=== PATIENT | male | born 1970 | race Caucasian/White ===

== ENCOUNTER 2021-02-25 13:38 | Outpatient (REF) | payer MEDICAID, SELFPAY ==
[2021-02-25 21:17] LABS: Abs Immature Grans 0.02 10^3/uL (0.0-0.06); Absolute Eosinophil Count 0.06 10^3/uL (0.0-0.7); Absolute Lymphocyte Count 1.17 10^3/uL (1.2-3.4); Absolute Monocyte Count 0.66 10^3/uL (0.1-0.8); Absolute Neutrophil Count 5.51 10^3/uL (1.2-6.7); Basophils % 1.3; Eosinophils % 0.8; HCT 44.9 % (40.0-50.0); Immature Grans % 0.3; Lymphocytes % 15.6; MCH 30.5 pg (27.0-33.0); MCHC 33.4 % (32.0-36.0); MCV 91.3 fL (80-95); MPV 10.3 fL (8.0-11.0); Monocytes % 8.8; Neutrophils % 73.2; Nucleated RBC 0 %; Platelet Count 189 10^3/uL (130-400); RBC 4.92 10^6/uL (4.36-5.78); RDW 13.2 % (11.8-14.1); RDW-SD 44.3 fL; WBC 7.52 10^3/uL (4.4-10.8)
[2021-02-25 21:34] LABS: ALT 60 U/L (16-63); AST 75 U/L (15-37); Albumin 4.6 g/dL (3.4-5.0); Alkaline Phosphatase 78 U/L (46-116); Anion Gap 12.9 mmol/L (3-11); BUN 6 mg/dL (7-18); Bilirubin, Total 0.5 mg/dL (0.2-1.0); CO2 26.1 mmol/L (21.0-32.0); CREATININE 0.8 mg/dL (0.70-1.30); Calcium 9.3 mg/dL (8.5-10.1); Chloride 96 mmol/L (98-107); Glucose 83 mg/dL (74-106); Potassium 4.1 mmol/L (3.5-5.1); Sodium 135 mmol/L (136-145); Total Protein 8.2 g/dL (6.4-8.2)
== END 2021-02-25 13:39 | disposition home or self-care (01) ==
LOC: NCHCN 13:38
PROVIDERS: Visit Provider Family Medicine
DX: K92.1 Melena (principal); R03.0 Elevated blood-pressure reading, without diagnosis of hypertension
CPT/HCPCS: 80053; 85025

== ENCOUNTER 2021-07-27 01:11 | Outpatient (CLI) | payer MEDICAID, SELFPAY ==
[2021-07-27 15:34] LABS: COVID-19 PCR Negative (Negative)
[2021-07-27 17:16] LABS: Source Nasal/Nares
== END 2021-07-27 01:12 | disposition home or self-care (01) ==
LOC: LBO 01:11
PROVIDERS: PCP Family Medicine; Visit Provider Surgery
DX: Z20.822 Contact with and (suspected) exposure to COVID-19 (principal); Z01.818 Encounter for other preprocedural examination
CPT/HCPCS: 87635

== ENCOUNTER 2021-07-29 10:18 | Day surgery (SDC) | payer MEDICAID, SELFPAY ==
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
--- NOTE | 2021-07-29 06:58 | W.COLOREPORT ---
Colonoscopy Report Date of procedure: 07/29/21 Pre-op diagnosis general: colon cancer screening Post-op diagnosis procedure note: other (polyps) Procedure: colonoscopy with polypectomy Surgeon: Kaykay Harris Anesthesia Type: General:No Airway Estimated blood loss (mL): 5 Pathology: other (cecal polyp, transverse polyp and sigmoid biopsies) Complications: None Disposition: same day Indications: The patient is here for Colonoscopy pre-op. He has no family history of colon cancer. He has not had any bowel habit changes. -Discussed colonoscopy bowel prep as well as the procedure. Discussed possible complications of the procedure to include bleeding, pain, perforation, missed small lesion/polyp, sore throat, aspiration and adverse reaction to the medications. Questions were answered to patient?s satisfaction. No guarantees were implied or given.? Unable to locate surgical history information regarding colectomy and colostomy given the age of the procedure. I spent ? 28? minutes in reviewing the record, seeing the patient, providing patient education, answering patient's questions and documenting in the medical record. P// Colonoscopy under sedation Prep: Miralax/Dulcolax Procedure Start Time: 11:58 Procedure End Time: 12:21 Retraction Time: 13 minutes Findings: 2 polyps ? a third Procedure Description: After informed consent was obtained the patient was taken to the procedure room and placed in a left decubitous position. Monitors were applied and a time out was done. The patients name, date of , procedure, allergies to medications and metal in their body was reviewed. The patient was then sedated. Once sedated and comfortable a rectal exam was done. External exam was normal. Internal exam revealed a normal sphincter tone and no palpable masses. The scope was then introduced and retro-flexed. No internal hemorrhoids, polyps or masses were identified on retro-flexion. The scope was then advanced to the cecum without difficulty. The ileocecal vlave and appendiceal orifice were identified. The prep was adequate. The scope was then slowly retracted over 13 minutes back into the rectum. Polyps were removed with cold forceps in the cecum and with a hot snare in the Transverse colon. In the sigmoid colon there was a question of a polyp, this was biopsied There was no diverticulosis noted. The scope was removed and the patient was woken up and taken back to Same day surgery in stable condition. The patient tolerated the procedure well and there were no immediate complications. Follow up: The patient should follow up in 3-5 years unless they develop changes in bowel habits or other new gastrointestinal complaints.
--- NOTE | 2021-07-29 06:59 | W.PM.DSUDISC ---
Discharge Plan Disposition Patient Disposition: HOME Condition: Good Discharge Details Reason For Visit: Colonoscopy Attending Provider: Kaykay Harris Primary Care Provider: Jovanni Tillman Home Meds and New Rx's Prescriptions: Continued atenolol 50 mg tablet 50 mg PO DAILY 0RF loratadine [Allergy Relief (loratadine)] 10 mg tablet 10 mg PO DAILY 0RF Discontinued bisacodyl [Dulcolax (bisacodyl)] 5 mg tablet,delayed release (DR/EC) 5 mg PO ONCE Qty: 4 0RF Rx Instructions: Take according to provider's instructions for colonoscopy prep. polyethylene glycol 3350 17 gram/dose powder 17 g PO ONCE Qty: 238 0RF Rx Instructions: To be taken as directed by prescriber's office for colonoscopy prep. Discharge Instructions Instructions: Colorectal Polyps (DC) Additional Instructions: Findings: a couple of polyps Follow up: will depend on final pathology results Please call if you develop: fevers >101.5 Nausea or Vomiting Abdominal pain that is not transient Rectal bleeding that is more then a tbsp A hard abdomen and inability to pass gas DAY SURGERY UNIT POST ENDOSCOPY INSTRUCTIONS Instructions for everyone who is given Anesthesia: For your safety, please do the following for the next 24 Hours: a. Do not drive or operate dangerous equipment b. Do not drink alcohol beverages or use any recreational drugs for the first 24 hours or while taking pain medications. The medications in your body may have a reaction that can be dangerous. c. Do not make any important decisions or sign any important papers 1. Generally there are no restrictions on your activity after a day or so has gone by, but you may feel a bit fatigued for a few days. 2. After you arrive home you may have a light meal and return to a normal diet as you can tolerate it without feeling sick to your stomach. 3. After surgery, you may feel pain or discomfort. This should be only transient, but if it persists please contact your doctor. 4. If there are any questions regarding the findings of your procedure, please feel free to contact your doctor. 6. If you are unable to contact your doctor with a problem, contact the hospital at [phone]. 7. Continue all your regular medications unless directed otherwise. I understand the above instructions and have no questions. Signature of Patient or Responsible Adult Escort Date/Time Name of Responsible Adult Escort Signature of Nurse Date/Time Activity:: Activity as Tolerated Diet:: As Tolerated Discharge Orders Discharge Orders: Discharge Order (Routine); Ordered 07/29/21 Ordered By: Kaykay Harris DS: Diagnosis Discharge Diagnosis (1) Encounter for colorectal cancer screening: Status: Acute
[2021-07-29 10:43] VITALS: BP 188/96; PULSE 82; RESP 16; TEMP 36.2; O2SAT 100
[2021-07-29] MEDS: Lactated Ringers 1,000 ML 80 ML IV (10:59)
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
[2021-07-29 11:41] VITALS: BMI 22.1
--- NOTE | 2021-07-29 12:04 | BOWEL_PTH ---
PATIENT: Nando Herr LOC: [facility] U#:[id number] AGE/SX: 50/M ROOM: RE07/29/[address]: Kaykay Harris MD : 1970 BED: DIS: 07/29/2021 SPEC #: [id number] RECD: 07/29/21 13:05 STATUS: KYLE RE #: [id number] SALIMA: 07/29/21 12:[address]: Kaykay Harris DEPT: Surgical Specimen RECD BY: Chery Nina ENTERED: 07/29/21 13:06 SP TYPE: Bowel OTHR DR: Jovanni Tillman Tissues: 1 - BIOPSY BOWEL 2 - BIOPSY BOWEL 3 - BIOPSY BOWEL Procedures: GROSS AND MICRO LEVEL 4 Comments: [id number]
[2021-07-29 12:30] VITALS: BP 148/98; PULSE 71; RESP 18; TEMP 36.1; O2SAT 99
--- NOTE | 2021-07-29 12:49 | W.ANESPOSTOP ---
Postoperative Evaluation Date, Time and Location Date Performed: 07/29/21 Time Performed: 12:49 Patient Location: Day Surgery Unit Vital Signs Most Recent Imported Vital Signs: Most Recent Vital Signs Temp Pulse Resp BP Pulse Ox 36.1 C L 71 18 148/98 H 99 07/29/21 12:30 07/29/21 12:30 07/29/21 12:30 07/29/21 12:30 07/29/21 12:30 Pain Score Most Recent Pain Score: Most Recent Pain Score Pain Level 0 07/29/21 12:30 Assessment Mental Status: Awake (Alert & Oriented to Patient Baseline) Airway and Respiratory Function: Patent airway with normal (patient baseline) respiratory exam Cardiovascular Function: Hemodynamically Stable Hydration Status: Adequately Hydrated Nausea & Vomiting: No Nausea or Vomiting Pain: Pt. Denies Any Pain Peripheral Nerve Block: Patient did not receive a nerve block Postoperative Comments:: Pt. was hypertensive throughout anesthetic despite a dose of IV lopressor. May want to follow up with PCP for hypertension.
[2021-07-29 13:05] VITALS: BP 185/91; PULSE 67; RESP 16; TEMP 36; O2SAT 100
== END 2021-07-29 13:20 | disposition home or self-care (01) ==
LOC: SUR 10:19
PROVIDERS: PCP Family Medicine; Visit Provider Surgery
PROC: 0DJD8ZZ Inspection of Lower Intestinal Tract, Via Natural or Artificial Opening Endoscopic (ICD-10-PCS; CPT 45378; principal; 2021-07-29 12:00)
DX: Z12.11 Encounter for screening for malignant neoplasm of colon (principal); D12.0 Benign neoplasm of cecum; Z98.0 Intestinal bypass and anastomosis status; D12.2 Benign neoplasm of ascending colon; K63.89 Other specified diseases of intestine
CPT/HCPCS: 45385; 45380; 88305; J2704

== ENCOUNTER 2021-10-21 08:35 | Outpatient (REF) | payer MEDICAID, SELFPAY ==
[2021-10-21 15:35] LABS: Calculated LDL 118 mg/dL (<100); Cholesterol 197 mg/dL (<200); HDL Cholesterol 53 mg/dL (40-60); Triglyceride 133 mg/dL (<150)
== END 2021-10-21 08:36 | disposition home or self-care (01) ==
LOC: NCHCN 08:35
PROVIDERS: PCP Family Medicine; Visit Provider Family Medicine
DX: I10 Essential (primary) hypertension (principal); Z13.220 Encounter for screening for lipoid disorders
CPT/HCPCS: 80061

== ENCOUNTER 2022-12-21 10:54 | Outpatient (REF) | payer MEDICAID, SELFPAY ==
[2022-12-21 14:36] LABS: HCT 40.2 % (40.0-50.0); HGB 14.1 g/dL (13.5-17.5); MCH 32.3 pg (27.0-33.0); MCHC 35.1 % (32.0-36.0); MCV 92 fL (80-95); MPV 10.2 fL (8.0-11.0); Platelet Count 219 10^3/uL (130-400); RBC 4.36 10^6/uL (4.36-5.78); RDW 12.3 % (11.8-14.1); RDW-SD 42.2 fL; WBC 5.55 10^3/uL (4.4-10.8)
[2022-12-21 14:51] LABS: BUN 5 mg/dL (7-18); Calcium 9.1 mg/dL (8.5-10.1); Chloride 95 mmol/L (98-107); Estimated GFR 91.69 (mL/min/1.73m2); Glucose 90 mg/dL (74-106); Potassium 4.5 mmol/L (3.5-5.1); Sodium 131 mmol/L (136-145)
== END 2022-12-21 10:55 | disposition home or self-care (01) ==
LOC: NCHCN 10:54
PROVIDERS: PCP Family Medicine; Visit Provider Family Medicine
DX: I10 Essential (primary) hypertension (principal)
CPT/HCPCS: 80048; 85027

== ENCOUNTER 2024-06-26 16:51 | Outpatient (REF) | payer MEDICAID, SELFPAY ==
[2024-06-26 14:38] LABS: Abs Immature Grans 0.07 10^3/uL (0.0-0.06); Absolute Basophil Count 0.09 10^3/uL (0.0-0.2); Absolute Lymphocyte Count 1.21 10^3/uL (1.2-3.4); Absolute Monocyte Count 0.64 10^3/uL (0.1-0.8); Absolute Neutrophil Count 4.82 10^3/uL (1.2-6.7); Basophils % 1.3 %; Eosinophils % 1.4 %; HCT 41.8 % (40.0-50.0); HGB 14.2 g/dL (13.5-17.5); Lymphocytes % 17.5 %; MCV 97 fL (80-95); MPV 9.5 fL (8.0-11.0); Monocytes % 9.2 %; Neutrophils % 69.6 %; Platelet Count 246 10^3/uL (130-400); RDW 12.7 % (11.8-14.1); RDW-SD 45.5 fL; WBC 6.93 10^3/uL (4.4-10.8)
[2024-06-26 14:44] LABS: ALT 28 U/L (16-63); AST 42 U/L (15-37); Albumin 4.6 g/dL (3.4-5.0); Alkaline Phosphatase 60 U/L (46-116); Anion Gap 10.9 mmol/L (3-11); BUN 9 mg/dL (7-18); Bilirubin, Total 0.81 mg/dL (0.2-1.0); CO2 26.1 mmol/L (21.0-32.0); CREATININE 0.8 mg/dL (0.70-1.30); Calcium 9.6 mg/dL (8.5-10.1); Chloride 94 mmol/L (98-107); Estimated GFR 107.15 (mL/min/1.73m2); Glucose 83 mg/dL (74-106); LDL CHOLESTEROL 81 mg/dL (<100); Potassium 4.9 mmol/L (3.5-5.1); Sodium 131 mmol/L (136-145)
== END 2024-06-26 16:52 | disposition home or self-care (01) ==
LOC: NCHCN 16:51
PROVIDERS: PCP Family Medicine; Visit Provider Family Medicine
DX: E78.5 Hyperlipidemia, unspecified (principal); I10 Essential (primary) hypertension
CPT/HCPCS: 80053; 83721; 85025

== ENCOUNTER 2024-07-23 02:03 | Outpatient (CLI) | payer MEDICAID, SELFPAY ==
--- NOTE | 2024-07-23 09:55 | DI.CTLCSR_ITS ---
Exam(s) CT CHEST LUNG CANCER SCREEN EXAM: CT CHEST LUNG CANCER SCREEN CLINICAL HISTORY: Nicotine dependence, F17.210; screening. TECHNIQUE: Imaging Protocol: Low Dose Technique CONTRAST MATERIAL: None COMPARISON: No exams were available for comparison FINDINGS: CHEST: LUNGS: There is biapical lung scarring, more prominent on the left side.. There are no confluent inf iltrates. No ominous pulmonary nodules. No pleural effusions. MEDIASTINUM: There is no obvious hilar nor mediastinal adenopathy. CARDIAC: Heart size is normal. There is no pericardial effusion.Caliber of the thoracic aorta is wit hin normal limits. OTHER: OSSEOUS: No significant osseous lesions.Fractures.. IMPRESSION: 1. Asymmetric biapical lung scarring, more prominent on the left side. Doubtful E significant. 2. No other significant pulmonary findings. 3. Lung RADS Cat 2 - Benign Appearance / Behavior: Nodules with a very low likelihood of becoming a c linically active cancer due to size or lack of growth Lung-RADS 1.0 CATEGORIES: Category 0 - Prior chest CT exam(s) being located for comparison. Category 1 - Annual screening in 12 months. No nodules or definitely benign nodules. Category 2 - Annual screening in 12 months. Benign appearance. Nodules with low likelihood of becomin g active cancer. Category 3 - 6-month follow-up. Probably benign. Short-term follow-up suggested. Nodules with low lik elihood of becoming active cancer. Category 4A - 3-month follow-up and CT/PET if >8 mm in size. Suspicious finding. Findings which requi re additional testing. Category 4B - Findings which require additional testing and tissue sampling. Category 4X - Category 3 or 4 nodules with additional features or imaging findings that increases the suspicion of malignancy. Modifier S- Potentially clinically significant findings (non lung cancer) RADIATION DOSE DELIVERED: 26.09mGy.cm Total DLP DATA REPOSITORY: All CT scans at this facility are submitted to the National Radiology Data Registry (NRDR) Dose Index Registry (DIR) with the [employer] (ACR). RADIATION OPTIMIZATION: All CT scans at this facility use at least one of these dose optimization te chniques: automated exposure control; mA and/or kV adjustment per patient size (includes targeted exa ms where dose is matched to clinical indication); or iterative reconstruction.
== END 2024-07-23 02:23 ==
LOC: DI 02:03
PROVIDERS: PCP Family Medicine; Visit Provider Family Medicine
DX: Z12.2 Encounter for screening for malignant neoplasm of respiratory organs (principal); F17.210 Nicotine dependence, cigarettes, uncomplicated; R91.8 Other nonspecific abnormal finding of lung field
CPT/HCPCS: 71271

== ENCOUNTER 2024-08-21 07:45 | Day surgery (SDC) | payer MEDICAID, SELFPAY ==
[2024-08-21 08:06] VITALS: BP 183/93; PULSE 81; RESP 16; TEMP 36.8; O2SAT 99
[2024-08-21] MEDS: Lactated Ringers 1,000 ML 80 ML IV (08:15)
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
[2024-08-21 09:51] VITALS: BMI 20.1
--- NOTE | 2024-08-21 10:09 | COLE_ITS ---
Date of service: 08/21/24 Time of Service: 10:09 Colonoscopy Report Procedure Description: PROCEDURES PERFORMED: 1. Colonoscopy with snare polypectomy PREOPERATIVE DIAGNOSIS: Surveillance colonoscopy, personal history of sessile serrated polyps POSTOPERATIVE DIAGNOSIS: Colon polyps, diverticulosis, grade 1 internal hemorrhoids SURGEON: Batsheva Mcguire MD INDICATION for procedure: The patient is a 53-year-old man who has a personal history of sessile serrated polyps on last colonoscopy. He has no symptoms of concern. FINDINGS: Terminal ileum was normal. In the distal sigmoid colon is a pedunculated 3-5 mm polyp that was removed with snare technique. No other po lyps anywhere. Diverticular disease in the sigmoid colon but no stricture or fibrosis or inflammation. Grade 1 internal hemorrhoids. SURVEILLANCE interval/FOLLOW-UP: 3-5 years. If this polyp was sessile serrated again then 3 years, otherwise 5 years. SPECIMENS: yes EBL: Minimal COMPLICATIONS: None QUALITY of prep: Excellent Procedure in detail: The patient gave written consent and was in agreement with the indications, the potential risks as well as the benefits of the procedure. They were taken to the endoscopy suite and laid in the left lateral decubitus position. A timeout was performed and anesthesia was administered which was tolerated well. I started the procedure. Digital rectal and visual examination was performed and grossly within normal limits. A well-lubricated flexible colonoscope was then introduced and passed without any notable difficulty all the way to the cecum identified by the ileocecal valve and the appendiceal orifice. The terminal ileum was deeply intubated and looked normal. The scope was then slowly withdrawn with the above-noted findings. The patient tolerated the procedure well and was taken to the PACU in hemodynamically stable condition.
--- NOTE | 2024-08-21 10:10 | W.PM.DSUDISC ---
Date of service: 08/21/24 Discharge Plan Disposition Patient Disposition: Home Condition: Good Discharge Details Attending Provider: Scot Mcguire Primary Care Provider: Jovanni Tillman Home Meds and New Rx's Prescriptions: No Action atenolol 50 mg tablet 50 mg PO DAILY bisacodyl 5 mg tablet,delayed release (DR/EC) 5 mg PO ONCE Qty: 4 0RF Rx Instructions: Per Colonoscopy bowel prep instructions polyethylene glycol 3350 17 gram/dose powder 238 g PO ONCE Qty: 238 0RF Rx Instructions: For Colonoscopy bowel prep, as directed by office aspirin 81 mg tablet,delayed release (DR/EC) 81 mg PO DAILY Discharge Instructions Additional Instructions: FINDINGS: A small polyp was found and removed today like last time. Nothing to worry about. We will follow-up with you after the pathology results which will decide whether you should have another colonoscopy in 3 years or in 5 years. Mild diverticular disease (diverticulosis) and mild hemorrhoid disease was seen today. These conditions are both very common, benign and nothing needs to be done about them. Stand Alone Forms: Anesthesia Discharge Inst., Colonoscopy Post Instructions, Valorie Abbott (DSU) Activity:: Activity as Tolerated Diet:: As Tolerated Discharge Orders Discharge Orders: Discharge Order (Routine); Ordered 08/21/24 Ordered By: Scot Mcguire
--- NOTE | 2024-08-21 10:25 | BOWEL_PTH ---
PATIENT: Nando Herr LOC: [facility] U#:[id number] AGE/SX: 53/M ROOM: RE08/21/[address]: Scot Mcguire : 1970 BED: DIS: 08/21/2024 SPEC #: [id number] RECD: 08/21/24 12:25 STATUS: KYLE COLMENARES #: [id number] SALIMA: 08/21/24 10:[address]: Scot Mcguire DEPT: Surgical Specimen RECD BY: Chery Nina ENTERED: 08/21/24 12:26 SP TYPE: Bowel OTHR DR: Jovanni Tillman Tissues: 1 - BIOPSY BOWEL Procedures: GROSS AND MICRO LEVEL 4 Comments: [id number]
[2024-08-21 10:39] VITALS: BP 156/91; PULSE 71; RESP 16; TEMP 36.4; O2SAT 99
[2024-08-21 11:00] VITALS: BP 194/84; PULSE 65; RESP 16; TEMP 36.8; O2SAT 84
--- NOTE | 2024-08-21 11:06 | W.ANESPOSTOP ---
Postoperative Evaluation Date, Time and Location Date Performed: 08/21/24 Time Performed: 11:06 Patient Location: Day Surgery Unit Vital Signs Most Recent Imported Vital Signs: Most Recent Vital Signs Temp Pulse Resp BP Pulse Ox 36.4 C L 71 16 156/91 H 99 08/21/24 10:39 08/21/24 10:39 08/21/24 10:39 08/21/24 10:39 08/21/24 10:39 Pain Score Most Recent Pain Score: Most Recent Pain Score Pain Level 0 08/21/24 10:39 Assessment Mental Status: Awake (Alert & Oriented to Patient Baseline) Airway and Respiratory Function: Patent airway with normal (patient baseline) respiratory exam Cardiovascular Function: Hemodynamically Stable Hydration Status: Adequately Hydrated Nausea & Vomiting: No Nausea or Vomiting Pain: Pt. Denies Any Pain Peripheral Nerve Block: Patient did not receive a nerve block
== END 2024-08-21 11:38 | disposition home or self-care (01) ==
PROVIDERS: PCP Family Medicine; Visit Provider Student in an Organized Health Care Education/Training Program
PROC: 0DJD8ZZ Inspection of Lower Intestinal Tract, Via Natural or Artificial Opening Endoscopic (ICD-10-PCS; CPT 45378; principal; 2024-08-21 09:00)
DX: Z12.11 Encounter for screening for malignant neoplasm of colon (principal); I10 Essential (primary) hypertension; F17.210 Nicotine dependence, cigarettes, uncomplicated; K63.5 Polyp of colon; K64.0 First degree hemorrhoids; K57.30 Diverticulosis of large intestine without perforation or abscess without bleeding; Z86.0101 Personal history of adenomatous and serrated colon polyps
CPT/HCPCS: 45385; 88305; J2003; J2704

== ENCOUNTER 2024-09-11 12:40 | Outpatient (REF) | payer MEDICAID, SELFPAY | END 2024-09-11 12:41 | disposition home or self-care (01) | LOC: NCHCN 12:40 | PROVIDERS: PCP Family Medicine; Visit Provider Family Medicine | DX: T14.8XXA Other injury of unspecified body region, initial encounter (principal) | CPT/HCPCS: 87077; 87070; 87205 ==

== ENCOUNTER 2025-01-11 06:13 | Day surgery (SDC) | payer MEDICAID, SELFPAY ==
[2025-01-11] MEDS: Tropicam./Phenyleph. (1/2.5%) 5 ML BTL OD ×3 (06:31→06:45)
[2025-01-11 06:32] VITALS: BP 182/98; PULSE 79; RESP 16; TEMP 36.5; O2SAT 100
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
[2025-01-11 07:08] VITALS: BMI 20.2
[2025-01-11] MEDS: Lidocaine 1% Pres-Free 5 ML VIAL (07:39)
[2025-01-11] MEDS: Moxifloxacin-PF 1 MG/ML VIAL (07:40)
[2025-01-11] MEDS: Duovisc Viscoelastic System EACH 1 EACH (07:40)
[2025-01-11] MEDS: Phenylephrine/Lidocaine (15/10) MG/ML 1 ML VIAL (07:43)
[2025-01-11] MEDS: Povidone-Iodine Ophth 30 ML BTL (07:44)
[2025-01-11] MEDS: Trypan Blue 0.06% 0.5 ML SYR (07:45)
[2025-01-11] MEDS: Balanced Salt Soln.-PLUS 500 ML BAG OP (07:45)
[2025-01-11] MEDS: Prednisolone 1%, Moxifloxacin 0.5%, Bromfenac 0.09% 5.6ML BTL OD (07:46)
[2025-01-11] MEDS: Tetracaine 0.5% 4 ML BTL OD (07:47)
[2025-01-11 08:05] VITALS: BP 176/82; PULSE 90; RESP 12; TEMP 36.5; O2SAT 99
--- NOTE | 2025-01-11 08:10 | W.PM.DSUDISC ---
Date of service: 01/11/25 Discharge Plan Disposition Patient Disposition: Home Discharge Details Attending Provider: Gt Gloria Primary Care Provider: Jovanni Tillman Home Meds and New Rx's Prescriptions: No Action atenolol 50 mg tablet 50 mg PO DAILY aspirin 81 mg tablet,delayed release (DR/EC) 81 mg PO DAILY diphenhydramine HCl [Allergy Relief(diphenhydramin)] 25 mg capsule 25 mg PO Q8H PRN Discharge Instructions Stand Alone Forms: DSU Post-Op Cataract, Valorie Abbott (DSU) Discharge Orders Discharge Orders: Discharge Order (Routine); Ordered 01/11/25 Ordered By: Gt Gloria DS: Diagnosis Discharge Diagnosis (1) Posterior subcapsular age-related cataract, right eye: Status: Resolved (2) Cortical age-related cataract, right eye: Status: Resolved
--- NOTE | 2025-01-11 08:10 | W.PM.OP ---
Operative Note Operative Note PRE-OP DIAGNOSIS: Cortical/posterior subcapsular cataract, right eye POST-OP DIAGNOSIS: same PROCEDURE: Cataract extraction using phacoemulsification with intraocular lens implant, right eye SURGEON: Gt Gloria ANESTHESIA TYPE: Local By Surgeon and MAC Refer to Anesthesia Record ESTIMATED BLOOD LOSS: 0 PATHOLOGY: none sent COMPLICATIONS: None Patient was transported to: same day Patient's condition: stable Implants: Andrew Clareon [id number] Indications: Progressive decreased vision due to cataract, right eye Procedure Description: CATARACT SURGERY OPERATIVE REPORT PREOPERATIVE DIAGNOSIS: Dense cortical/posterior subcapsular cataract, right eye POSTOPERATIVE DIAGNOSIS: Same OPERATION: Cataract extraction using phacoemulsification with posterior chamber intraocular lens implant, right eye. IOL: IOL [employer]/Model: Andrew Clareon [id number] IOL Power: + 17.5 diopters IOL Serial Number: [id number] Optic Diameter: 6.0mm Haptic/Overall Diameter: 13.0mm PHACO INFO: Andrew Super Heat Gamesurion Vision System with OZil and Active Fluidics Cumulative Dispersed Energy (CDE): 2.79 seconds SURGEON: Gt Gloria MD, HAIR ANESTHESIA: Monitored Anesthesia Care (MAC), with local sub-tenon's anesthetic infiltration COMPLICATIONS: None SPECIMENS: None INDICATIONS FOR PROCEDURE: The patient is a 54-year-old male with history of progressive decreased vision in his right eye. He has noted to have a dense nuclear/posterior subcapsular cataract in the right eye with visual acuity of 20/500. The option of cataract surgery was offered to the patient and he wished to proceed. See office notes for detailed information. PROCEDURE: The correct surgical eye was identified and marked as the right eye and the pupil was dilated in the preoperative area using mydriatics and cycloplegics. The dilated pupil size was 8.0 mm. Oral sedation was administered in the form of an Imprimis MKO Melt (midazolam 3mg/ketamine 25mg/ondansetron 2mg). The patient was brought to the operating room where cardiopulmonary monitoring was instituted and surgical time-out was performed, confirming the correct operative eye and IOL power. Topical anesthesia was administered and ophthalmic povidone-iodine 5% was instilled into the conjunctival fornices. The arianna-ocular area was prepped with Betadine 10% solution and draped in the usual sterile fashion for intraocular surgery, including an aperture drape. A Tegaderm transparent film dressing was cut in half and used to cover the lashes and lid margins. Care was taken to sequester the lashes and lid margins under the Tegaderm dressing. A lid speculum was placed between the lids of the operative eye and the Andrew LuxOR Revalia operating microscope was maneuvered into position. The red reflex was poor due to the cortical and posterior subcapsular cataract. Marina scissors were then used to make a conjunctival buttonhole approximately 6mm posterior to the limbus in the inferonasal quadrant. Blunt dissection was carried out to expose bare sclera, and a blunt-tipped sub-tenon?s anesthesia cannula was introduced and passed posteriorly along the globe where non-preserved plain lidocaine was injected into posterior sub-Tenon?s space. A sideport knife was used to make a paracentesis port. VisionBlue was injected into the anterior chamber and allowed to sit for 30 seconds. Intraocular phenylephrine/lidocaine was injected into the anterior chamber. The anterior chamber was then filled with viscoelastic. A keratome knife was used to construct a two--plane clear corneal tunnel extending 2.0mm into clear cornea. A flap was raised on the anterior capsule and capsulorhexis forceps were used to complete a continuous curvilinear capsulorhexis of 5.0 mm. The anterior capsule was noted to be quite thin, and the patient was moving constantly, the capsulorrhexis was slightly irregular. Balanced salt solution was then used to perform cortical cleaving hydrodissection and nuclear hydrodelineation until the lens could be freely rotated within the capsular bag. The lens nucleus was then disassembled and removed within the capsular bag and iris plane using phacoemulsification. Residual cortical material was removed using the I/A handpiece. The posterior capsule was carefully polished to remove as much residual lens epithelial cells as safely possible. There was some residual posterior subcapsular plaque which could not be safely removed despite extensive polishing. The capsular bag was then inflated and the anterior chamber deepened with cohesive viscoelastic. The lens implant described above was inserted into the capsular bag using the Andrew Autonome Injector. A Kuglen hook was used to dial the IOL into position. Residual viscoelastic was then removed first from posterior to the IOL, then from the anterior chamber using the I/A handpiece. The lens implant was noted to center nicely within the capsular bag. The incisions were stromally hydrated, and the anterior chamber was reformed using BSS. Then 0.5cc of moxifloxacin 1.0mg/ml were injected into the capsular bag and anterior chamber. The incisions were checked with a Weck spear and found to be secure. Several drops of ophthalmic povidone-iodine 5% were then applied to the eye followed by two drops of combination steroid/NSAID/antibiotic solution. The drapes were removed and a clear plastic protective eye shield was placed over the eye. The patient was then returned to Same Day Surgery in stable condition. Date of Procedure: 01/11/25
[2025-01-11 08:34] VITALS: BP 183/107; PULSE 89; RESP 14; TEMP 36.5; O2SAT 100
--- NOTE | 2025-01-11 08:41 | W.ANESPOSTOP ---
Postoperative Evaluation Date, Time and Location Date Performed: 01/11/25 Time Performed: 08:20 Patient Location: Day Surgery Unit Vital Signs Most Recent Imported Vital Signs: Most Recent Vital Signs Temp Pulse Resp BP Pulse Ox 36.5 C 89 14 183/107 H 100 01/11/25 08:34 01/11/25 08:34 01/11/25 08:34 01/11/25 08:34 01/11/25 08:34 Pain Score Most Recent Pain Score: Most Recent Pain Score Pain Level 3 01/11/25 08:34 Assessment Mental Status: Awake (Alert & Oriented to Patient Baseline) Airway and Respiratory Function: Patent airway with normal (patient baseline) respiratory exam Cardiovascular Function: Hemodynamically Stable Hydration Status: Adequately Hydrated Nausea & Vomiting: No Nausea or Vomiting Pain: Pain is tolerable per patient (Associated with leg) Peripheral Nerve Block: Patient did not receive a nerve block Postoperative Comments:: Patient instructed to take morning blood pressure medication when he gets home and recheck blood pressure reading. Verbalizes understanding. Currently asymptomatic.
== END 2025-01-11 08:45 | disposition home or self-care (01) ==
PROVIDERS: PCP Family Medicine; Visit Provider Ophthalmology
PROC: (CPT 66984; principal; 2025-01-11 07:30)
DX: H25.041 Posterior subcapsular polar age-related cataract, right eye (principal); H25.011 Cortical age-related cataract, right eye
CPT/HCPCS: 66984; 00123; V2632; J2003

== ENCOUNTER 2025-01-15 02:35 | Outpatient (CLI) | payer MEDICAID, SELFPAY ==
[2025-01-15 13:45] LABS: ALT 24 U/L (16-63); AST 39 U/L (15-37); Albumin 3.6 g/dL (3.4-5.0); Alkaline Phosphatase 110 U/L (46-116); Bilirubin, Direct 0.2 mg/dL (0.0-0.2); Bilirubin, Total 0.4 mg/dL (0.2-1.0); Estimated GFR 116.15 (mL/min/1.73m2); Total Protein 7.3 g/dL (6.4-8.2)
[2025-01-15] MEDS: Omnipaque 350 MG/ML 100 ML BTL IJ (14:03)
[2025-01-15] MEDS: Omnipaque 350 MG/ML 50 ML BTL IJ (14:04)
[2025-01-15] MEDS: Normal Saline - Diluent 50 ML VIAL IJ ×2 (14:05→14:06)
--- NOTE | 2025-01-15 14:20 | DI.CT_ITS ---
Exam(s) CT ABD AORTA CTA W RUNOFF EXAM: CT ABD AORTA CTA W RUNOFF CLINICAL HISTORY: PAD, CLI WITH NON HEALING WOUND TO RLE I73.9. TECHNIQUE: Imaging Protocol: Axial computed tomography images with coronal and sagittal reformatted images were created and reviewed CONTRAST MATERIAL: Intravenous: Omnipaque 350 Contrast volume:150 mL Oral: None COMPARISON: No exams were available for comparison FINDINGS: ABDOMINAL AORTA: There is mild-moderate atherosclerotic disease in the mid-distal abdominal aorta. However, there is more severe disease at the level the aortic bifurcation and common iliac arteries. 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 There is severe disease throughout the length of the right common iliac artery as well as at its junction with the right external iliac artery. 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 The right external iliac artery exhibits multilevel stenosis, including a high-grade stenosis at the upper acetabular level. There is occlusion of the right common femoral artery. The right SFA is reconstituted in the upper calf and descends with moderate lumen diameter as well as stenosis in Demarcus's canal. This vessel is not occluded and is continuous with the right popliteal artery which exhibits some calcified plaque but is patent. There is no evidence of right popliteal artery aneurysm. The right tibioperoneal trunk is patent and there is patent 3 vessel runoff in the right calf with the dominant runoff vessel being the anterior tibial artery which is continuous into the foot as the dorsalis pedis artery. The right posterior tibial artery is opacified to the level behind the ankle but not into the plantar vessels. The right peroneal artery is opacified to the distal calf level. LEFT SIDE: There is moderate stenosis in the proximal left common iliac artery. Milder stenosis more distally in this vessel. There is mild stenosis at the junction of the left common and external iliac arteries. Beyond this level there is some mild focal disease in the mid left external iliac artery; less than is present on the opposite side. However, there is significant stenosis at the junction of the left external and common femoral arteries. Moderate stenosis at this level as well as in the left common femoral artery. (There is high-grade stenosis at the origin of the left internal iliac artery). The left SFA artery is patent throughout the length of the thigh with mild multilevel stenoses. It is continuous with the left popliteal artery which exhibits moderate disease but no high-grade stenosis. There is no aneurysm in the left popliteal artery. The left tibioperoneal trunk exhibits some calcified plaque. There appears to be three-vessel runoff in the left calf but the adjacent anterior and posterior tibial veins are opacified on the arterial phase in the left calf making evaluation of the arteries somewhat difficult. SOFT TISSUES LOWER EXTREMITIES: There is diffuse circumferential subcutaneous edema in both caps, more prominent on the left side. There does not appear to be a distinct fluid collection. There is no gas in soft tissues. No radiopaque foreign bodies. OSSEOUS: No evidence of osteomyelitis in the feet. No fractures evident. LUNGS: Visualized lung bases are clear no pleural effusions.. ABDOMEN: There is no ascites. LIVER: There are no focal hepatic lesions nor dilatation of intrahepatic ducts. GALLBLADDER/BILIARY: No obvious gallbladder pathology. CBD is not dilated. PANCREAS: No evidence of pancreatic mass nor dilatation of the pancreatic duct. SPLEEN: Spleen is not enlarged. There are no intrasplenic lesions. Splenic and portal veins are patent. ADRENALS: There are no significant adrenal masses. KIDNEYS: No cysts evident. No calculi nor hydronephrosis. No solid renal masses. LYMPH NODES: There is no retroperitoneal nor para-aortic adenopathy. No obvious mesenteric masses. ABDOMINAL WALL: No evidence of significant anterior abdominal wall hernia. GI: There are no ischemic appearing bowel loops. No evidence of bowel obstruction. PELVIS: LYMPH NODES: There is no intrapelvic nor inguinal adenopathy. GI: No evidence of appendicitis.No evidence of sigmoid diverticulitis. URINARY BLADDER: No calculi nor masses evident REPRODUCTIVE: Prostate size normal. Seminal vesicles unremarkable. OSSEOUS: No significant osseous lesions. IMPRESSION: 1. 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 There is also occlusion of the right common femoral artery with reconstitution of the SFA in the upper right thigh. There is also a significant stenosis but no occlusion at the junction of the left external iliac and common femoral arteries. 2. 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 There is high- grade stenosis in the proximal left internal iliac artery. There are no aneurysms of the internal iliac arteries evident. 3. Vascular surgery consultation is recommended at this time. For a physician's office notified following completion of this study 01/15/2025 RADIATION DOSE DELIVERED: 561.58mGy.cm Total DLP DATA REPOSITORY: All CT scans at this facility are submitted to the National Radiology Data Registry (NRDR) Dose Index Registry (DIR) with the [employer] (A[employer]). RADIATION OPTIMIZATION: All CT scans at this facility use at least one of these dose optimization techniques: automated exposure control; mA and/or kV adjustment per patient size (includes targeted exams where dose is matched to clinical indication); or iterative reconstruction.
== END 2025-01-15 02:55 ==
LOC: DI 02:35
PROVIDERS: PCP Family Medicine; Visit Provider Registered Nurse
DX: I70.8 Atherosclerosis of other arteries (principal)
CPT/HCPCS: 75635; 80076; 82565; J3490; Q9967

== ENCOUNTER 2025-01-25 09:06 | Day surgery (SDC) | payer MEDICAID, SELFPAY ==
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
[2025-01-25 09:42] VITALS: BP 156/76; PULSE 65; RESP 16; TEMP 36.3; O2SAT 99
[2025-01-25] MEDS: Tropicam./Phenyleph. (1/2.5%) 5 ML BTL OS ×3 (09:46→09:58)
[2025-01-25 09:59] VITALS: BMI 20.2
[2025-01-25] MEDS: Tetracaine 0.5% 4 ML BTL OS (11:00)
[2025-01-25] MEDS: Povidone-Iodine Ophth 30 ML BTL (11:00)
[2025-01-25] MEDS: Lidocaine 1% Pres-Free 5 ML VIAL (11:06)
[2025-01-25] MEDS: Duovisc Viscoelastic System EACH 1 EACH (11:07)
[2025-01-25] MEDS: Phenylephrine/Lidocaine (15/10) MG/ML 1 ML VIAL (11:07)
[2025-01-25] MEDS: Balanced Salt Soln.-PLUS 500 ML BAG OP (11:08)
[2025-01-25] MEDS: Moxifloxacin-PF 1 MG/ML VIAL (11:22)
[2025-01-25] MEDS: Prednisolone 1%, Moxifloxacin 0.5%, Bromfenac 0.09% 5.6ML BTL OS (11:23)
[2025-01-25 11:33] VITALS: BP 156/76; PULSE 65; RESP 16; TEMP 36.3; O2SAT 99
--- NOTE | 2025-01-25 11:33 | W.PM.DSUDISC ---
Date of service: 01/25/25 Discharge Plan Disposition Patient Disposition: Home Discharge Details Attending Provider: Gt Gloria Primary Care Provider: Jovanni Tillman Home Meds and New Rx's Prescriptions: No Action atenolol 50 mg tablet 50 mg PO DAILY aspirin 81 mg tablet,delayed release (DR/EC) 81 mg PO DAILY diphenhydramine HCl [Allergy Relief(diphenhydramin)] 25 mg capsule 25 mg PO Q8H PRN Discharge Instructions Stand Alone Forms: DSU Post-Op Cataract, Valorie Abbott (DSU) Discharge Orders Discharge Orders: Discharge Order (Routine); Ordered 01/25/25 Ordered By: Gt Gloria DS: Diagnosis Discharge Diagnosis (1) Posterior subcapsular age-related cataract of left eye: Status: Resolved (2) Cortical age-related cataract, left eye: Status: Resolved
--- NOTE | 2025-01-25 11:34 | W.PM.OP ---
Operative Note Operative Note PRE-OP DIAGNOSIS: Cortical/posterior subcapsular cataract, left eye POST-OP DIAGNOSIS: same PROCEDURE: Cataract extraction using phacoemulsification with intraocular lens implant, left eye SURGEON: Gt Gloria ANESTHESIA TYPE: Local By Surgeon and MAC Refer to Anesthesia Record PATHOLOGY: none sent COMPLICATIONS: None Patient was transported to: same day Patient's condition: stable Implants: Andrew Clareon [id number] Indications: Progressive decreased vision due to cataract, left eye Procedure Description: CATARACT SURGERY OPERATIVE REPORT PREOPERATIVE DIAGNOSIS: Cortical/posterior subcapsular cataract, left eye POSTOPERATIVE DIAGNOSIS: Same OPERATION: Cataract extraction using phacoemulsification with posterior chamber intraocular lens implant, left eye. IOL: IOL Program Director [employer]/Model: Andrew Clareon [id number] IOL Power: + 18.5 diopters IOL Serial Number: [id number] Optic Diameter: 6.0mm Haptic/Overall Diameter: 13.0mm PHACO INFO: Andrew Centurion Vision System with OZil and Active Fluidics Cumulative Dispersed Energy (CDE): 0.88 seconds SURGEON: Gt Gloria MD, HAIR ANESTHESIA: Monitored Anesthesia Care (MAC), with local sub-tenon's anesthetic infiltration COMPLICATIONS: None SPECIMENS: None INDICATIONS FOR PROCEDURE: The patient is a 54-year-old male with history of diminished visual acuity in both eyes secondary to the development of dense cortical/posterior subcapsular cataract. He has already undergone cataract surgery in the right eye and is doing well postoperatively. He now presents for cataract surgery in the left eye. See office notes for detailed information. PROCEDURE: The correct surgical eye was identified and marked as the left eye and the pupil was dilated in the preoperative area using mydriatics and cycloplegics. The dilated pupil size was 7.0 mm. Oral sedation was administered in the form of an Imprimis MKO Melt (midazolam 3mg/ketamine 25mg/ondansetron 2mg). The patient was brought to the operating room where cardiopulmonary monitoring was instituted and surgical time-out was performed, confirming the correct operative eye and IOL power. Topical anesthesia was administered and ophthalmic povidone-iodine 5% was instilled into the conjunctival fornices. The arianna-ocular area was prepped with Betadine 10% solution and draped in the usual sterile fashion for intraocular surgery, including an aperture drape. A Tegaderm transparent film dressing was cut in half and used to cover the lashes and lid margins. Care was taken to sequester the lashes and lid margins under the Tegaderm dressing. A lid speculum was placed between the lids of the operative eye and the Andrew Lux[employer] Revalia operating microscope was maneuvered into position. Marina scissors were then used to make a conjunctival buttonhole approximately 6mm posterior to the limbus in the inferonasal quadrant. Blunt dissection was carried out to expose bare sclera, and a blunt-tipped sub-tenon?s anesthesia cannula was introduced and passed posteriorly along the globe where non-preserved plain lidocaine was injected into posterior sub-Tenon?s space. A sideport knife was used to make a paracentesis port. Intraocular phenylephrine/lidocaine was injected into the anterior chamber. The anterior chamber was then filled with viscoelastic. A keratome knife was used construct a two-plane clear corneal tunnel extending 2.0mm into clear cornea. A flap was raised on the anterior capsule and capsulorhexis forceps were used to complete a continuous curvilinear capsulorhexis of 5.0 mm. Balanced salt solution was then used to perform cortical cleaving hydrodissection and nuclear hydrodelineation until the lens could be freely rotated within the capsular bag. The lens nucleus was then disassembled and removed within the capsular bag and iris plane using phacoemulsification. Residual cortical material was removed using the irrigation/aspiration handpiece. The posterior capsule was carefully polished to remove as much residual lens epithelial cells as safely possible. The capsular bag was then inflated and the anterior chamber deepened with viscoelastic. The lens implant described above was inserted into the capsular bag using the Andrew Autonome Injector. A Kuglen hook was used to dial the IOL into position. Residual viscoelastic was then removed first from posterior to the IOL, then from the anterior chamber using the I/A handpiece. The lens implant was noted to center nicely within the capsular bag. The incisions were stromally hydrated, and the anterior chamber was reformed using BSS. Then 0.5cc of moxifloxacin 1.0mg/ml were injected into the capsular bag and anterior chamber. The incisions were checked with a Weck spear and found to be secure. Several drops of ophthalmic povidone-iodine 5% were then applied to the eye followed by two drops of combination steroid/NSAID/antibiotic solution. The drapes were removed and a clear plastic protective eye shield was placed over the eye. The patient was then returned to Same Day Surgery in stable condition. Date of Procedure: 01/25/25
--- NOTE | 2025-01-25 11:41 | W.ANESPOSTOP ---
Postoperative Evaluation Date, Time and Location Date Performed: 01/25/25 Time Performed: 11:42 Patient Location: Day Surgery Unit Vital Signs Most Recent Imported Vital Signs: Most Recent Vital Signs Temp Pulse Resp BP Pulse Ox 36.3 C L 65 16 156/76 H 99 01/25/25 11:33 01/25/25 11:33 01/25/25 11:33 01/25/25 11:33 01/25/25 11:33 Pain Score Most Recent Pain Score: Most Recent Pain Score Pain Level 0 01/25/25 11:33 Assessment Mental Status: Awake (Alert & Oriented to Patient Baseline) Airway and Respiratory Function: Patent airway with normal (patient baseline) respiratory exam Cardiovascular Function: Hemodynamically Stable Hydration Status: Adequately Hydrated Nausea & Vomiting: No Nausea or Vomiting Pain: Pt. Denies Any Pain Peripheral Nerve Block: Patient did not receive a nerve block
[2025-01-25 11:58] VITALS: BP 124/94; PULSE 71; RESP 16; TEMP 36.2; O2SAT 100
== END 2025-01-25 12:00 | disposition home or self-care (01) ==
LOC: SUR 09:06
PROVIDERS: PCP Family Medicine; Visit Provider Ophthalmology
PROC: (CPT 66984; principal; 2025-01-25 12:00)
DX: H25.012 Cortical age-related cataract, left eye (principal); H25.042 Posterior subcapsular polar age-related cataract, left eye; I10 Essential (primary) hypertension
CPT/HCPCS: 66984; 00123; V2632; J2003